=== PATIENT | female | born 1995 | race African-American/Black ===

== ENCOUNTER 2020-09-13 12:46 | Emergency (ER) | payer OTHER ==
[~2020-09-13] VITALS: Ht 157.5 cm; Wt 68.0 kg
[2020-09-13 12:51] VITALS: BP 152/98
[2020-09-13] MEDS ORDERED: AMOXICILLIN500 M1 PO (13:01)
== END 2020-09-13 13:15 | disposition home or self-care (01) ==
LOC: ER 12:46
DX: H66.91 Otitis media, unspecified, right ear (principal); J02.9 Acute pharyngitis, unspecified; J30.1 Allergic rhinitis due to pollen; Z91.048 Other nonmedicinal substance allergy status

== ENCOUNTER 2020-09-22 08:04 | Emergency (ER) | payer OTHER ==
[~2020-09-22] VITALS: Ht 154.9 cm; Wt 68.0 kg
[~2020-09-22 08:04] MED LIST: AMOXICILLIN500 M1 PO
[2020-09-22] MEDS ORDERED: ULTRAM 50MG TAB50 MG PO (08:40)
[2020-09-22 09:14] VITALS: BP 126/80
== END 2020-09-22 09:15 | disposition home or self-care (01) ==
LOC: ER 08:04
DX: K08.89 Other specified disorders of teeth and supporting structures (principal); R68.84 Jaw pain; Z79.2 Long term (current) use of antibiotics; Z91.048 Other nonmedicinal substance allergy status

== ENCOUNTER 2020-10-11 19:11 | Emergency (ER) | payer OTHER ==
[~2020-10-11] VITALS: Ht 165.1 cm; Wt 70.3 kg
[~2020-10-11 19:11] MED LIST changes: +ULTRAM 50MG TAB50 MG PO
[2020-10-11] MEDS ORDERED: MAXALT10 MG PO (19:26)
[2020-10-11 21:30] VITALS: BP 139/79
== END 2020-10-11 21:30 | disposition home or self-care (01) ==
LOC: ER 19:11
DX: G43.909 Migraine, unspecified, not intractable, without status migrainosus (principal)

== ENCOUNTER 2020-10-16 12:55 | Emergency (ER) | payer OTHER ==
[~2020-10-16] VITALS: Ht 157.5 cm; Wt 70.8 kg
[~2020-10-16 12:55] MED LIST changes: +MAXALT10 MG PO
[2020-10-16] MEDS ORDERED: CYCLOBENZAPRINE5 MG PO (17:01)
[2020-10-16] MEDS ORDERED: MOBIC7.5 MG PO (17:01)
[2020-10-16 17:19] VITALS: BP 151/94
== END 2020-10-16 17:20 | disposition home or self-care (01) ==
LOC: ER 12:55
DX: S06.0X0A Concussion without loss of consciousness, initial encounter (principal); S16.1XXA Strain of muscle, fascia and tendon at neck level, initial encounter; S39.012A Strain of muscle, fascia and tendon of lower back, initial encounter; S80.02XA Contusion of left knee, initial encounter; V49.49XA Driver injured in collision with other motor vehicles in traffic accident, initial encounter; Y93.I9 Activity, other involving external motion; Y92.488 Other paved roadways as the place of occurrence of the external cause; Y99.8 Other external cause status

== ENCOUNTER 2021-02-06 07:42 | Emergency (ER) | payer OTHER ==
[~2021-02-06] VITALS: Ht 154.9 cm; Wt 70.3 kg
[~2021-02-06 07:42] MED LIST changes: +CYCLOBENZAPRINE5 MG PO; +MOBIC7.5 MG PO
[2021-02-06 07:43] VITALS: BP 137/82
[2021-02-06] MEDS ORDERED: IBUPROFEN 800800 M1 PO (07:46)
[2021-02-06] MEDS ORDERED: TRAMADOL 50 MG50 MG PO (07:56)
[2021-02-06] MEDS ORDERED: PENICILLIN VK500 M1 PO (07:56)
== END 2021-02-06 08:03 | disposition home or self-care (01) ==
LOC: ER 07:42
DX: K02.9 Dental caries, unspecified (principal); K08.89 Other specified disorders of teeth and supporting structures; Z79.899 Other long term (current) drug therapy

== ENCOUNTER 2021-03-27 08:39 | Emergency (ER) | payer BC, OTHER ==
[~2021-03-27] VITALS: Ht 154.9 cm; Wt 72.6 kg
[~2021-03-27 08:39] MED LIST changes: +IBUPROFEN 800800 M1 PO; +PENICILLIN VK500 M1 PO; +TRAMADOL 50 MG50 MG PO
[2021-03-27 08:55] VITALS: BP 109/71
[2021-03-27] MEDS ORDERED: LEVOCETIRIZINE D5 MG PO (09:03)
[2021-03-27] MEDS ORDERED: RIZATRIPTAN10 MG PO (09:03)
[2021-03-27] MEDS ORDERED: PERIDEX 0.12%473 M1 PO (09:03)
[2021-03-27] MEDS ORDERED: PENICILLIN V P500 MG PO (09:03)
[2021-03-27] MEDS ORDERED: NAPROSYN500 M1 PO (09:54)
[2021-03-27] MEDS ORDERED: NORCO5 PO (09:54)
== END 2021-03-27 10:02 | disposition home or self-care (01) ==
LOC: ER 08:39
DX: K08.89 Other specified disorders of teeth and supporting structures (principal); Z91.09 Other allergy status, other than to drugs and biological substances; Z79.891 Long term (current) use of opiate analgesic; Z79.899 Other long term (current) drug therapy

== ENCOUNTER 2021-04-30 07:46 | Emergency (ER) | payer OTHER ==
[~2021-04-30] VITALS: Ht 154.9 cm; Wt 68.0 kg
[~2021-04-30 07:46] MED LIST changes: +LEVOCETIRIZINE D5 MG PO; +NAPROSYN500 M1 PO; +NORCO5 PO; +PENICILLIN V P500 MG PO; +PERIDEX 0.12%473 M1 PO; +RIZATRIPTAN10 MG PO
[2021-04-30 07:55] VITALS: BP 132/82
[2021-04-30] MEDS ORDERED: TRAMADOL 50 MG50 MG PO (08:06)
[2021-04-30] MEDS ORDERED: CLEOCIN HCL300 MG PO (08:06)
== END 2021-04-30 13:37 | disposition home or self-care (01) ==
LOC: ER 07:46
DX: M27.69 Other endosseous dental implant failure (principal); Z91.09 Other allergy status, other than to drugs and biological substances; Z79.899 Other long term (current) drug therapy

== ENCOUNTER 2021-05-20 18:20 | Emergency (ER) | payer OTHER ==
[~2021-05-20] VITALS: Ht 154.9 cm; Wt 70.3 kg
[~2021-05-20 18:20] MED LIST changes: +CLEOCIN HCL300 MG PO
[2021-05-20] MEDS ORDERED: NAPROSYN500 MG PO (19:38)
[2021-05-20] MEDS ORDERED: TYLENOL325 M1 PO (19:38)
[2021-05-20] MEDS ORDERED: VANACOF DM LIQ240 ML PO (19:38)
[2021-05-20 19:56] VITALS: BP 120/80
== END 2021-05-20 19:57 | disposition home or self-care (01) ==
LOC: ER 18:20
DX: U07.1 COVID-19 (principal); Z91.09 Other allergy status, other than to drugs and biological substances; Z79.899 Other long term (current) drug therapy